=== PATIENT | male | born 1995 | race African-American/Black ===

== ENCOUNTER 2018-12-21 06:41 | Emergency (ER) | payer BC ==
[2018-12-21] MEDS: Ketorolac 30 MG/ML SDV IVPUSH ONE (07:16)
[2018-12-21] MEDS: HYDROmorphone 1 MG/ML Syringe IVPUSH ONE (07:21)
[2018-12-21] MEDS: Ondansetron 4 MG/2 ML SDV IVPUSH ONE (07:26)
[2018-12-21] MEDS: Sodium Chloride 0.9% 1,000 ML IV SCH (07:32)
--- NOTE | 2018-12-21 07:53 | EDM.PDOC ---
ED HPI GENERAL MEDICAL PROBLEM - General Chief Complaint: Flank Pain Stated Complaint: KIDNEY STONE Time Seen by Provider: 12/21/18 06:52 Source of Information: Reports: Patient History Limitations: Reports: No Limitations - History of Present Illness INITIAL COMMENTS - FREE TEXT/NARRATIVE: The patient presents with right flank pain. This started on Wednesday for a short time and it went away until this morning at 5am. The pain is sharp and it is in the right flank and radiates to the right lower abdomen. He has some dysuria but no hematuria. He has no history of kidney stones. He has no gallbladder but he still has his appendix. He has a history of Crohn's disease. He has no fever, chills, cough, chest pain or shortness of breath. He does have some nausea and vomiting with it. Onset: Gradual Duration: Day(s): (3) Location: Reports: Abdomen, Back Quality: Reports: Sharp Severity: Severe Improves with: Reports: None Worsens with: Reports: None Associated Symptoms: Reports: Nausea/Vomiting Abdomen Pain Score (Numeric/FACES): 2 - Related Data Allergies Allergy/AdvReac Type Severity Reaction Status Date / Time No Known Allergies Allergy Verified 12/21/18 06:52 Home Meds: Home Meds Adalimumab [Humira Pen Crohn's-Uc-Hs] 0 mg SQ ASDIRECTED 12/21/18 [History] Hydrocodone/Acetaminophen [Hydrocodon-Acetaminophen 5-325] 1 - 2 each PO Q6HR PRN #20 tablet 12/21/18 [Rx] Tamsulosin HCl [Flomax] 0.4 mg PO DAILY #7 cap.er.24h 12/21/18 [Rx] sulfaSALAzine [sulfaSALAzine DR] 1,500 mg PO BID 12/21/18 [History] Past Medical History Gastrointestinal History: Reports: Other (See Below) Other Gastrointestinal History: Crohns disease Social & Family History - Tobacco Use Smoking Status *Q: Unknown Ever Smoked - Recreational Drug Use Recreational Drug Use: No ED ROS GENERAL - Review of Systems Review Of Systems: See Below Constitutional: Reports: No Symptoms HEENT: Reports: No Symptoms Respiratory: Reports: No Symptoms Cardiovascular: Reports: No Symptoms Endocrine: Reports: No Symptoms GI/Abdominal: Reports: Abdominal Pain, Nausea, Vomiting. Denies: Diarrhea : Reports: Dysuria, Flank Pain (Right). Denies: Hematuria Musculoskeletal: Reports: Back Pain (right flank) ED EXAM, GI/ABD - Physical Exam Exam: See Below Exam Limited By: No Limitations General Appearance: Alert, No Apparent Distress Ears: Normal External Exam Nose: Normal Inspection Head: Atraumatic, Normocephalic Neck: Normal Inspection Respiratory/Chest: No Respiratory Distress, Lungs Clear, Normal Breath Sounds Cardiovascular: Regular Rate, Rhythm, No Edema, No Murmur GI/Abdominal Exam: Soft, No Organomegaly, No Mass, Tender (Mild RLQ abdominal pain) Back Exam: CVA Tenderness (R) Extremities: Normal Inspection Neurological: Alert, Oriented, No Motor/Sensory Deficits Course - Vital Signs Last Recorded V/S: Last Vital Signs Temp 97.3 F 12/21/18 06:52 Pulse 80 12/21/18 06:52 Resp 17 12/21/18 06:52 BP 160/141 H 12/21/18 06:52 Pulse Ox 97 12/21/18 06:52 - Orders/Labs/Meds Orders: Active Orders 24 hr Category Date Time Status Peripheral IV Care [RC] . DIRECTED Care 12/21/18 07:03 Active Abdomen Pelvis wo Cont [CT] Stat Exams 12/21/18 07:02 Taken Sodium Chloride 0.9% [Normal Saline] 1,000 ml Med 12/21/18 07:15 Active IV ASDIRECTED Sodium Chloride 0.9% [Saline Flush] Med 12/21/18 07:02 Active 10 ml FLUSH ASDIRECTED PRN ED Antiemetic Medication Reflex [OM.PC] Stat Oth 12/21/18 07:02 Ordered Peripheral IV Insertion Adult [OM.PC] Stat Oth 12/21/18 07:02 Ordered Medication Orders Sodium Chloride (Normal Saline) 1,000 mls @ 125 mls/hr IV ASDIRECTED KAELYN Last Admin: 12/21/18 07:32 Dose: 125 mls/hr Sodium Chloride (Saline Flush) 10 ml FLUSH ASDIRECTED PRN PRN Reason: Keep Vein Open Last Admin: 12/21/18 08:01 Dose: 10 ml Labs: Laboratory Tests 12/21/18 12/21/18 12/21/18 Range/Units 07:13 07:13 08:55 WBC 11.09 H (4.23-9.07) K/mm3 RBC 5.02 (4.63-6.08) M/mm3 Hgb 15.1 (13.7-17.5) gm/L Hct 44.4 (40.1-51.0) % MCV 88.4 (79.0-92.2) fl MCH 30.1 (25.7-32.2) pg MCHC 34.0 (32.2-35.5) g/dl RDW Std Deviation 39.2 (35.1-43.9) fL Plt Count 256 (163-337) K/mm3 MPV 11.3 (9.4-12.3) fl Neut % (Auto) 46.7 (34.0-67.9) % Lymph % (Auto) 41.7 (21.8-53.1) % [place] % (Auto) 9.8 (5.3-12.2) % Eos % (Auto) 1.0 (0.8-7.0) Baso % (Auto) 0.3 (0.1-1.2) % Neut # (Auto) 5.19 (1.78-5.38) K/mm3 Lymph # (Auto) 4.62 H (1.32-3.57) K/mm3 [place] # (Auto) 1.09 H (0.30-0.82) K/mm3 Eos # (Auto) 0.11 (0.04-0.54) K/mm3 Baso # (Auto) 0.03 (0.01-0.08) K/mm3 Manual Slide Review Abnormal smear Sodium 143 (136-145) mEq/L Potassium 3.6 (3.5-5.1) mEq/L Chloride 103 (98-107) mEq/L Carbon Dioxide 26 (21-32) mEq/L Anion Gap 17.6 H (5-15) BUN 14 (7-18) mg/dL Creatinine 1.4 H (0.7-1.3) mg/dL Est Cr Clr Drug Dosing 87.61 mL/min Estimated GFR (MDRD) > 60 (>60) mL/min BUN/Creatinine Ratio 10.0 L (14-18) Glucose 111 H (74-106) mg/dL Calcium 9.0 (8.5-10.1) mg/dL Total Bilirubin 0.4 (0.2-1.0) mg/dL AST 22 (15-37) U/L ALT 22 (16-63) U/L Alkaline Phosphatase 62 (46-116) U/L Total Protein 7.6 (6.4-8.2) g/dl Albumin 4.1 (3.4-5.0) g/dl Globulin 3.5 gm/dL Albumin/Globulin Ratio 1.2 (1-2) Lipase 125 (73-393) U/L Urine Color Yellow (Yellow) Urine Appearance Clear (Clear) Urine pH 5.5 (5.0-8.0) Ur Specific [place] > or = 1.030 (1.005-1.030) Urine Protein Negative (Negative) Urine Glucose (UA) Negative (Negative) Urine Ketones Negative (Negative) Urine Occult Blood 2+ H (Negative) Urine Nitrite Negative (Negative) Urine Bilirubin Negative (Negative) Urine Urobilinogen 0.2 (0.2-1.0) Ur Leukocyte Esterase Negative (Negative) Urine RBC 20-30 H (0-5) /hpf Urine WBC 0-5 (0-5) /hpf Ur Epithelial Cells 0-5 (0-5) /hpf Urine Bacteria Few (FEW) /hpf Urine Mucus Not seen (FEW) /hpf Meds: Medications Generic Name Dose Route Start Last Admin Trade Name Freq PRN Reason Stop Dose Admin Sodium Chloride 1,000 mls @ 125 mls/hr 12/21/18 07:15 12/21/18 07:32 Normal Saline IV 125 mls/hr ASDIRECTED KAELYN Administration Sodium Chloride 10 ml 12/21/18 07:02 12/21/18 08:01 Saline Flush FLUSH 10 ml ASDIRECTED PRN Administration Keep Vein Open Discontinued Medications Generic Name Dose Route Start Last Admin Trade Name Freq PRN Reason Stop Dose Admin Hydromorphone HCl 1 mg 12/21/18 07:03 12/21/18 07:21 Dilaudid IVPUSH 12/21/18 07:04 1 mg ONETIME ONE Administration Sodium Chloride 500 mls @ 1,000 mls/hr 12/21/18 08:39 Normal Saline IV 12/21/18 09:08 .BOLUS ONE Ketorolac Tromethamine 30 mg 12/21/18 07:03 12/21/18 07:16 Toradol IVPUSH 12/21/18 07:04 30 mg ONETIME ONE Administration Ondansetron HCl 4 mg 12/21/18 07:02 12/21/18 07:26 Zofran IVPUSH 12/21/18 07:03 4 mg ONETIME ONE Administration - Re-Assessments/Exams Free Text/Narrative Re-Assessment/Exam: 12/21/18 07:52 I ordered an IV NS at 125mL/hr, zofran 4mg IV, toradol 30mg IV, dilaudid 1mg IV , labs, UA and a CT of his abdomen and pelvis with IV and oral contrast. 12/21/18 09:36 His WBC was elevated at 11.09. His anion gap is elevated at 17.6. His creatinine is elevated at 1.4. His glucose is 111. His lipase is normal. His UA has blood but no sign of UTI. His CT shows renal medullary hyperattenuation on unenhanced CT may be related to hydration status, precipitation of drugs within the collecting tubules, possible indicator of nephrocalcinosis or due to medullary sodium chloride concentration. Mild right hydronephrosis and hydroureter due to a 2mm calculus at the right UVJ. His pain is under control. I will get him on some hydrocodone and flomax. Departure - Departure Time of Disposition: 09:40 Disposition: Home, Self-Care 01 Condition: Good Clinical Impression: Ureteric colic, Kidney stone on right side, Ureteral calculus, right - Discharge Information *PRESCRIPTION DRUG MONITORING PROGRAM REVIEWED*: No *COPY OF PRESCRIPTION DRUG MONITORING REPORT IN PATIENT JARRED: No Prescriptions: Hydrocodone/Acetaminophen [Hydrocodon-Acetaminophen 5-325] 1 - 2 each PO Q6HR PRN #20 tablet PRN Reason: Pain Tamsulosin HCl [Flomax] 0.4 mg PO DAILY #7 cap.er.24h Referrals: PCP,Not In Area [Primary Care Provider] - Maciel Garcia MD [Physician] - 1 Week Forms: ED Department Discharge, ED Return to Work/School Form Additional Instructions: Drink plenty of fluids. Take motrin or tylenol for the pain. If that does not help, try the hydorcodone. Take the flomax daily. You should pass the stone without intervention from a urologist. If you do not pass it within a week, call Dr Garcia. Please return if you are worse. - My Orders Last 24 Hours: My Active Orders 12/21/18 07:02 Abdomen Pelvis wo Cont [CT] Stat Sodium Chloride 0.9% [Saline Flush] 10 ml FLUSH ASDIRECTED PRN ED Antiemetic Medication Reflex [OM.PC] Stat Peripheral IV Insertion Adult [OM.PC] Stat 12/21/18 07:03 Peripheral IV Care [RC] . DIRECTED 12/21/18 07:15 Sodium Chloride 0.9% [Normal Saline] 1,000 ml IV ASDIRECTED - Assessment/Plan Last 24 Hours: My Active Orders 12/21/18 07:02 Abdomen Pelvis wo Cont [CT] Stat Sodium Chloride 0.9% [Saline Flush] 10 ml FLUSH ASDIRECTED PRN ED Antiemetic Medication Reflex [OM.PC] Stat Peripheral IV Insertion Adult [OM.PC] Stat 12/21/18 07:03 Peripheral IV Care [RC] . DIRECTED 12/21/18 07:15 Sodium Chloride 0.9% [Normal Saline] 1,000 ml IV ASDIRECTED
[2018-12-21] MEDS: Sodium Chloride 0.9% 10 ML Syringe FLUSH PRN (08:01)
[2018-12-21] MEDS ORDERED: Sodium Chloride 0.9% 500 ML IV ONE (08:39)
== END 2018-12-21 09:54 | disposition home or self-care (01) ==
LOC: JD.ED 06:41
DX: N13.2 Hydronephrosis with renal and ureteral calculous obstruction (principal)
CPT/HCPCS: 36415; 74176; 80053; 81001; 83690; 85025; 96361; 96374; 96375; 99284; 99284-25; J1170; J1885; J2405; J7040